=== PATIENT | female | born 1960 | race Hispanic/Latino ===

== ENCOUNTER 2022-12-29 16:01 | Emergency (ER) | payer BC ==
[~2022-12-29] VITALS: Ht 160 cm; Wt 62.1 kg
[2022-12-29] MEDS ORDERED: BENZTROPINE MESY2 MG PO (17:12)
[2022-12-29] MEDS ORDERED: ONDANSETRON HCL INJ 2MG/ML 2ML 2 MG/ML VIAL IV STA (17:47)
[2022-12-29] MEDS ORDERED: SODIUM CHLORIDE 0.9% 1000ML 1,000 ML IV SCH (18:00)
[2022-12-29] MEDS ORDERED: IOPAMIDOL 370 MG/ML 100 ML INFUS..BTL INJ ONE (18:08)
[2022-12-29] MEDS ORDERED: SODIUM CHLORIDE 0.9% 1000ML 1,000 ML ONE (18:36)
[2022-12-29] MEDS ORDERED: CEFTRIAXONE 1 GM VIAL ONE (18:36)
[2022-12-29] MEDS ORDERED: ONDANSETRON HCL INJ 2MG/ML 2ML 2 MG/ML VIAL ONE (18:36)
[2022-12-29] MEDS ORDERED: ONDANSETRON ODT4 MG PO (20:02)
[2022-12-29] MEDS ORDERED: CEFUROXIME500 MG PO (20:04)
[2022-12-29] MEDS ORDERED: LEVSIN-SL0.125 MG SL (20:04)
[2022-12-29 20:22] VITALS: BP 150/76
== END 2022-12-29 20:22 | disposition home or self-care (01) ==
LOC: FSED 16:25
DX: R10.30 Lower abdominal pain, unspecified (principal); K59.00 Constipation, unspecified; R11.2 Nausea with vomiting, unspecified; N39.0 Urinary tract infection, site not specified; N26.1 Atrophy of kidney (terminal); M41.9 Scoliosis, unspecified
CPT/HCPCS: 74177; 80053; 81003; 85025; 87086; 87186; 96374; 96376; 99284; J0696; J2405; J7030; Q9967

== ENCOUNTER 2023-01-12 23:00 | Emergency (ER) | payer BC, OTHER ==
[~2023-01-12] VITALS: Ht 157.5 cm; Wt 59.0 kg
[~2023-01-12 23:00] MED LIST: BENZTROPINE MESY2 MG PO; CEFUROXIME500 MG PO; LEVSIN-SL0.125 MG SL; ONDANSETRON ODT4 MG PO
[2023-01-13] MEDS ORDERED: PANTOPRAZOLE SO40 MG PO (00:48)
[2023-01-13] MEDS ORDERED: DICYCLOMINE HCL20 MG PO (00:49)
[2023-01-13 01:03] VITALS: BP 120/72
== END 2023-01-13 01:12 | disposition home or self-care (01) ==
LOC: FSED 23:24
DX: R11.2 Nausea with vomiting, unspecified (principal); K59.00 Constipation, unspecified; R10.13 Epigastric pain; M54.9 Dorsalgia, unspecified; G89.29 Other chronic pain; R94.31 Abnormal electrocardiogram [ECG] [EKG]
CPT/HCPCS: 80053; 82553; 84484; 85025; 93005; 99283

== ENCOUNTER 2024-10-26 21:24 | Emergency (ER) | payer BC, OTHER ==
[~2024-10-26] VITALS: Ht 154.9 cm; Wt 71.7 kg
[~2024-10-26 21:24] MED LIST changes: +DICYCLOMINE HCL20 MG PO; +PANTOPRAZOLE SO40 MG PO
[2024-10-26 21:55] VITALS: PULSE 82; RESP 16; TEMP 97.2
[2024-10-26] MEDS: ONDANSETRON HCL INJ 2MG/ML 2ML 2 MG/ML VIAL IV STA (22:40)
[2024-10-26] MEDS: Morphine 4mg INJECTION 4 MG/ML INJ IV ONE (22:42)
[2024-10-26] MEDS ORDERED: IOPAMIDOL 370 MG/ML 100 ML INFUS..BTL INJ ONE (23:10)
[2024-10-27 02:51] VITALS: BP 132/61; PULSE 71; RESP 18; TEMP 98.3; O2SAT 99
== END 2024-10-27 01:07 | disposition home or self-care (01) ==
LOC: FSED 21:39
DX: N93.8 Other specified abnormal uterine and vaginal bleeding (principal); K45.8 Other specified abdominal hernia without obstruction or gangrene; M54.9 Dorsalgia, unspecified; G89.29 Other chronic pain; Z93.3 Colostomy status
CPT/HCPCS: 74177; 80053; 85025; 99284; J2270; J2405; Q9967

== ENCOUNTER 2025-06-07 21:53 | Emergency (ER) | payer OTHER ==
[~2025-06-07] VITALS: Ht 154.9 cm; Wt 67.6 kg
[2025-06-07] MEDS: Morphine 4mg INJECTION 4 MG/ML INJ IV ONE (22:51)
[2025-06-07] MEDS ORDERED: IOPAMIDOL 370 MG/ML 100 ML INFUS..BTL INJ ONE (23:03)
[2025-06-08] MEDS: SODIUM CHLORIDE 0.9% 1000ML 1,000 ML IV ONE (01:03)
[2025-06-08 01:33] VITALS: PULSE 69; RESP 16; TEMP 98.7
[2025-06-08 01:35] VITALS: BP 117/73; PULSE 69; RESP 17; TEMP 98.7; O2SAT 98
== END 2025-06-08 02:19 | disposition home or self-care (01) ==
LOC: FSED 21:57
DX: R11.2 Nausea with vomiting, unspecified (principal); R10.30 Lower abdominal pain, unspecified; I10 Essential (primary) hypertension; Z98.0 Intestinal bypass and anastomosis status; Z93.3 Colostomy status
CPT/HCPCS: 74177; 80053; 85025; 99284; J2270; J7030; Q9967